=== PATIENT | male | born 2000 | race Caucasian/White ===

== ENCOUNTER 2018-12-01 15:16 | Emergency (ER) | payer MEDICAID ==
[2018-12-01 15:22] VITALS: BP 145/88; PULSE 62; RESP 16; TEMP 97.6; O2SAT 100
--- NOTE | 2018-12-01 15:36 | C.PDOC ---
History Of Present Illness 18 y/o male presents s/p fall x 2 while playing basketball on Thursday. He states that he was hit when playing defense. He denies LOC, headache, or dizziness His mother had given him otc Flanax but patient denies much relief. He states the pain is worse when lifting it over his head. He denies any use of ice or any other alleviating measures. He denies fever, chills, N/V, paresthesia and chest pain. Time Seen by Provider: 12/01/18 15:23 Chief Complaint (Nursing): Upper Extremity Problem/Injury History Per: Patient, Family (mother) History/Exam Limitations: no limitations Onset/Duration Of Symptoms: Days (5 days (since Thursday)) Current Symptoms Are (Timing): Still Present Quality: Dull, Aching Severity: Moderate Exacerbating Factor(s): Movement Recent travel outside of the [place]: No Past Medical History Reviewed: Historical Data, Nursing Documentation, Vital Signs Vital Signs: Last Vital Signs Temp 97.6 F 12/01/18 15:19 Pulse 62 12/01/18 15:19 Resp 16 12/01/18 15:19 BP 145/88 12/01/18 15:19 Pulse Ox 100 12/01/18 15:19 - Medical History PMH: Denies: Bipolar Disorder (denies 12/01/18) Other PMH: bipolar Surgical History: No Surg Hx Family History: States: CAD - Social History Hx Tobacco Use: No Hx Alcohol Use: No Hx Substance Use: No - Immunization History Hx Tetanus Toxoid Vaccination: No Hx Influenza Vaccination: No Hx Pneumococcal Vaccination: No Review Of Systems Constitutional: Negative for: Fever, Chills, Weakness Cardiovascular: Negative for: Chest Pain Respiratory: Negative for: Shortness of Breath Gastrointestinal: Negative for: Nausea, Vomiting, Abdominal Pain Musculoskeletal: Positive for: Shoulder Pain. Negative for: Neck Pain, Back Pain, Leg Pain Skin: Negative for: Bruising Neurological: Negative for: Headache, Dizziness Physical Exam - Physical Exam Appears: Well, Non-toxic, No Acute Distress Skin: Normal Color, Warm, Dry Head: Atraumatic, Normacephalic, No Tenderness, No Abrasion Eye(s): bilateral: Normal Inspection, PERRL Ear(s): Bilateral: TM Obscured By Wax Nose: Flaring Oral Mucosa: Moist Throat: No Erythema Neck: Normal ROM, Supple Lymphatic: No Adenopathy Chest: Symmetrical Cardiovascular: Rhythm Regular Respiratory: Normal Breath Sounds, No Accessory Muscle Use Gastrointestinal/Abdominal: Bowel Sounds, Soft, No Tenderness Back: Normal Inspection, No CVA Tenderness Extremity: Normal ROM (but pain with lifting right arm above head; left shoulder, bilateral elbow, and wrist have full ROM), Capillary Refill (less than 2 seconds), No Swelling Extremity: Bilateral: Atraumatic (shoulders) Pulses: Left Brachial: Normal, Right Brachial: Normal Neurological/Psych: Oriented x3, Normal Speech, Normal Cognition, Normal Sensation Gait: Steady ED Course And Treatment O2 Sat by Pulse Oximetry: 100 Medical Decision Making Medical Decision Making: A/P: Right Shoulder Sprain - Start Naprosyn 500mg BID PRN pain - patient was advised to hold off on strenuous activity but recommend movement of the joint to prevent stiffness - recommend icy/hot massages and ice packs - advised to follow up with Ortho if symptoms persist or worsen - patient verbalized understanding Disposition - Disposition Referrals: [facility] [Outside] Disposition: HOME/ ROUTINE Disposition Time: 15:44 Condition: GOOD Additional Instructions: ALLYSSA RICE, thank you for letting us take care of you today. Your provider was Bonnie Elder/Kirk Schmid PA-C and you were treated for RT Shoulder PAIN. The emergency medical care you received today was directed at your acute symptoms. If you were prescribed any medication, please fill it and take as directed. It may take several days for your symptoms to resolve. Return to the Emergency Department if your symptoms worsen, do not improve, or if you have any other problems. Please contact your doctor or call one of the physicians/clinics you have been referred to that are listed on the Patient Visit Information form that is included in your discharge packet. Bring any paperwork you were given at discharge with you along with any medications you are taking to your follow up visit. Our treatment cannot replace ongoing medical care by a primary care provider outside of the emergency department. Thank you for allowing the [facility] team to be part of your care today. Prescriptions: Naproxen [Naprosyn] 500 mg PO BID PRN #30 tablet PRN Reason: Pain, Mild (1-3) Instructions: Shoulder Sprain (DC), Contusion (DC) - Clinical Impression Clinical Impression: Contusion, Sprain of shoulder joint - PA / CHART COLLECTOR / Resident Statement MD/DO has reviewed & agrees with the documentation as recorded.
== END 2018-12-01 15:58 | disposition home or self-care (01) ==
LOC: C.ER 15:16
DX: S43.401A Unspecified sprain of right shoulder joint, initial encounter (principal); S40.011A Contusion of right shoulder, initial encounter; W18.30XA Fall on same level, unspecified, initial encounter; Y93.67 Activity, basketball